=== PATIENT | male | born 1970 | race Caucasian/White ===

== ENCOUNTER 2019-07-23 06:36 | Observation (INO) | payer BC, OTHER, SELFPAY ==
[2019-07-23] VITALS (10 sets, daily range): BP systolic 113–167; BP diastolic 74–98; PULSE 74–94; RESP 14–22; TEMP 36.7–37; O2SAT 96–100; BMI 33.4
--- NOTE | ~2019-07-23 | CT_ITS ---
EXAMINATION: CTA chest PE protocol DATE: 07/23/2019 09:09 CDT INDICATION: Chest pain and shortness of breath TECHNIQUE: Computed tomographic angiography (CTA) of the chest was performed with 100 mL Omnipaque-35 0 intravenous contrast. The dose-length product was 474.21 mGy-cm. Maximum intensity projection 3D-re constructions of the aorta and other arteries were constructed by the technologist on a separate work station. Automated exposure control and iterative reconstruction technique were employed. COMPARISON: Chest dated 07/23/2019 FINDINGS: Study is technically adequate without evidence for pulmonary embolism. Streak artifact from the IVC limits evaluation of the left upper lobe pulmonary arteries centrally. No significant pleura l or pericardial effusion. Heart size normal. No evidence for mediastinal lymphadenopathy. No pneumot horax. No endobronchial lesions. No pulmonary nodules or masses. Status post cholecystectomy. The upp er abdomen is otherwise unremarkable. IMPRESSION: 1. No acute cardiopulmonary disease. No evidence for pulmonary embolism. Reviewed, dictated and finalized at location A.
--- NOTE | ~2019-07-23 | XR_ITS ---
EXAMINATION: XR chest 2V 07/23/2019 07:12 INDICATION: Chest pressure. PROCEDURE: 2 view chest COMPARISON: 01/31/2015 FINDINGS: The lungs are clear. The cardiomediastinal silhouette is within normal limits. There are no pleural effusions. There is no pneumothorax suspected. IMPRESSION: 1: NO ACUTE CARDIOPULMONARY DISEASE. Reviewed, dictated and finalized at location A.
--- NOTE | 2019-07-23 06:44 | ECG_ITS ---
Measurements Intervals [place] Rate: 96 P: 50 [place]: 171 QRS: -13 QRSD: 98 T: 33 QT: 335 QTc: 425 Interpretive Statements SINUS RHYTHM BORDERLINE R WAVE PROGRESSION, ANTERIOR LEADS INFERIOR INFARCT, AGE INDETERMINATE ABNORMAL ECG Electronically Signed On 07-23-2019 7:12:39 CDT by Maverick Carlson D.O.
--- NOTE | 2019-07-23 06:45 | ED.ABDPAIN ---
HPI - Abdominal Pain General Chief Complaint: Chest Pain Stated Complaint: chest pressure Time Seen by Provider: 07/23/19 06:38 Source: RN notes reviewed History of Present Illness HPI narrative: Patient presents emergency department from home for chest pain. Patient states symptoms been ongoing for the past 2 weeks. Patient is located in the middle lower chest and is described as aching. Pain does not radiate. Patient states that pain seems to be worse when he lays down to sleep and in the morning. He denies any previous history of cardiac disease. Denies any fevers or chills shortness of breath cough abdominal pain nausea vomiting diarrhea or any other symptoms. States he is taking nothing previously for the pain. Patient states the pain is always there but will come and go in intensity Related Data Home Medications Medication Instructions Recorded Confirmed sildenafil 07/23/19 valacyclovir 07/23/19 Allergies Allergy/AdvReac Type Severity Reaction Status Date / Time hydrocodone Allergy Mild rash Verified 07/23/19 06:51 Penicillins Allergy Mild rash Verified 07/23/19 06:51 Review of Systems Review of Systems: Narrative: Gen.: Denies fevers or chills ENT: Denies congestion Respiratory: Denies shortness of breath or cough CV: See HPI GI: Denies abdominal pain nausea, emesis or diarrhea denies burning, urgency, frequency or hematuria Musculoskeletal: Denies back pain or muscle pain Neuro: Denies numbness, tingling, weakness or focal weakness Skin: Denies rash Except as documented, all other systems reviewed and negative PMFSH Past Medical History Medical History (Updated 07/23/19 @ 10:15 by Abdi Angel DO) Patient denies significant medical history Social History Social History Smoking status: Never smoker Second hand tobacco smoke exposure: No Alcohol intake: never Exam Narrative: Exam Narrative: APPEARANCE: No acute distress, nontoxic, resting in bed EYES: EOMI HEENT: Normocephalic, atraumatic, OMM RESPIRATORY: No respiratory distress Clear to auscultation bilaterally with no rhonchi wheezing or rales. CARDIOVASCULAR: Regular rate and rhythm without murmurs rubs or gallops. ABDOMINAL: Soft, nontender, nondistended, no rebound or guarding MUSCULOSKELETAl: Moves all extremities. No clubbing, cyanosis or edema. NEURO: Awake and alert. Following commands, speech normal, no focal deficits SKIN:: Warm, dry. No rashes lesions or abrasions PSYCHIATRIC: Normal affect/mood, Course Course Emergency Course: Patient states pain is resolved at this time Discussed with OR[place]O Middleton for Dr. Mota presentation work-up. Agrees admission [facility] Discussed with patient and family results of workup and diagnosis. Discussed need for admission. Patient and family understand and agree to current treatment plan Vital Signs Vital signs: Vital Signs Temperature 98.6 F 07/23/19 06:37 Pulse Rate 93 07/23/19 06:37 Respiratory Rate 22 H 07/23/19 06:37 Blood Pressure 167/98 H 07/23/19 06:37 Pulse Oximetry 100 07/23/19 06:37 Temperature 98.6 F 07/23/19 06:37 Pulse Rate 93 07/23/19 06:37 Respiratory Rate 22 H 07/23/19 06:37 Blood Pressure 167/98 H 07/23/19 06:37 Pulse Oximetry 100 07/23/19 06:37 MDM - Abdominal Pain Lab Data Result diagrams: 07/23/19 06:49 07/23/19 06:48 Labs: Lab Results 07/23/19 07/23/19 07/23/19 Range/Units 06:48 06:48 06:49 WBC 6.3 (4.5-10.0) K/mm3 RBC 5.42 (4.6-6.20) M/mm3 Hgb 17.4 (14.0-18.0) g/dL Hct 49.3 (42.0-52.0) % MCV 91.0 (80-100) fl MCH 32.1 (26-34) pg MCHC 35.3 (32-36) g/dl RDW 11.9 (11.5-14.5) % Plt Count 220 (150-375) k/mm3 MPV 10.6 H (7.4-10.4) fl Immature Gran % (Auto) 0.3 (0-0.5) % Neut % (Auto) 44.9 L (45.5-73.1) % Lymph % (Auto) 33.3 (18.3-44.2) % [place] % (Au
[2019-07-23 06:58] LABS: Basophils Percent Auto 0.6 % (0.2-1.2); Eosinophils Absolute Auto 0.3 K/mm3 (0-0.3); Eosinophils Percent Auto 4.1 % (0-4.4); Hematocrit 49.3 % (42.0-52.0); Hemoglobin 17.4 g/dL (14.0-18.0); Immature Granulocyte Absolute 0.02 K/mm3 (0.00-0.031); Immature Granulocyte Percent A 0.3 % (0-0.5); Lymphocytes Percent Auto 33.3 % (18.3-44.2); Mean Corpuscular HGB Conc 35.3 g/dl (32-36); Mean Corpuscular Hemoglobin 32.1 pg (26-34); Mean Platelet Volume 10.6 fl (7.4-10.4); Monocytes Absolute Auto 1.1 K/mm3 (0.1-0.6); Monocytes Percent Auto 16.8 % (2.6-8.5); Neutrophils Absolute Auto 2.8 K/mm3 (1.3-6.7); Neutrophils Percent Auto 44.9 % (45.5-73.1); Platelet Count Result 220 k/mm3 (150-375); Red Blood Count 5.42 M/mm3 (4.6-6.20); Red Cell Distribution Width 11.9 % (11.5-14.5); White Blood Count 6.3 K/mm3 (4.5-10.0)
[2019-07-23 07:22] LABS: Troponin I < 0.012 ng/mL (0.000-0.034)
[2019-07-23 07:24] LABS: Alanine Aminotransferase 40 U/L (4-50); Albumin Level 4.5 g/dL (3.5-5.1); Alkaline Phosphatase 59 U/L (38-126); Aspartate Amino Transferase 36 U/L (17-59); Bilirubin,Total 0.6 mg/dL (0.2-1.3); Blood Urea Nitrogen 15 mg/dL (9-20); Calcium 8.9 mg/dL (8.4-10.2); Carbon Dioxide 28 mmol/L (22-30); Chloride 101 mmol/L (98-107); Estimated Glomerular Filt Rate > 60; Glucose 111 mg/dL (75-110); Lipase 78 U/L (23-300); Potassium 4.1 mmol/L (3.4-5.0); Sodium 138 mmol/L (137-145)
[2019-07-23 09:57] LABS: Cholesterol 161 mg/dL (0-200); HDL Direct 42 mg/dL; Triglycerides 199 mg/dL (<150)
[2019-07-23 10:07] LABS: LDL Cholesterol Direct 115 mg/dL
--- NOTE | 2019-07-23 10:24 | ADMGEN ---
This patient, Sumit Abdi, was admitted [facility] Patient/family oriented to hospital policies and general routines including ID bracelet, bed and alarms, visiting hours, pain management, procedures, bathroom and other care routines, personal items, smoking policy, room service/diet, and visiting hours. Valuables list has been completed. Information on how to activate the Rapid Response Team has been discussed. Patient/Family are encouraged to report perceived risks to care and to ask questions if they do not understand what they are told or what they should do.
[2019-07-23 10:32] LABS: Troponin I < 0.012 ng/mL (0.000-0.034)
--- NOTE | 2019-07-23 11:58 | PC.NURSE ---
DR. NAJERA TO BEDSIDE TO SEE PT.
--- NOTE | 2019-07-23 12:22 | PM.IMHP ---
H&P: HPI History of Present Illness Chief complaint: chest pain Narrative: Sumit Abdi is a 49 year old male without any previous history of cardiac problems to seen in the emergency room this morning at admitted to the [facility]. The patient reports a 2 to three-week history of chest discomfort he describes as a dull aching pain that is sometimes in the low substernal region sometimes in the upper substernal region sometimes to the left of center and sometimes over to the right. The symptoms seem to come and go throughout the course of the day they are not associated with any symptoms of shortness of breath diaphoresis nausea or vomiting. They seem to be less noticeable if he is active during the day and more noticeable if he is quiet sitting in a chair relaxing. He does go to the gym and exercise regularly for fitness and has not noticed that vigorous aerobic activity will cause any of this. He has no other cardiac history or symptomatology. The patient was seen in the emergency room for these symptoms this morning is evaluations done there was unrevealing in it was determined that he should come to the [facility]. He denies any history of hypertension diabetes or dyslipidemia he does have sleep apnea for which he has been on CPAP for for 5 years. He is a established patient of Dr. Real Gregorio. Review of Systems Constitutional: Constitutional: Reports no additional constitutional complaints Eyes: Eyes: Reports no additional eye complaints ENT: Reports system reviewed and no additional complaints, except as documented Cardiovascular: Cardiovascular: Reports as per HPI Respiratory: Respiratory: Reports no additional respiratory complaints Gastrointestinal: Gastrointestinal: Reports no additional gastrointestinal complaints Musculoskeletal: Musculoskeletal: Reports no additional musculoskeletal complaints Integumentary/Breasts: Skin/Breast: Reports system reviewed and no additional complaints, except as docu Neurologic: Reports system reviewed and no additional complaints, except as documented Psychiatric: Psychiatric: Reports no additional psychiatric complaints [facility] Past Medical History Medical History (Updated 07/23/19 @ 10:15 by Abdi Angel DO) Patient denies significant medical history Social History Social History Smoking status: Never smoker Second hand tobacco smoke exposure: No Alcohol intake: never Meds Home Medications and Allergies Home Medications Medication Instructions Recorded Confirmed Type No Home Medications 07/23/19 07/23/19 History Allergies Allergy/AdvReac Type Severity Reaction Status Date / Time hydrocodone Allergy Mild rash Verified 07/23/19 06:51 Penicillins Allergy Mild rash Verified 07/23/19 06:51 Vital Signs Vital Signs - 24 hr 07/23/19 06:37 07/23/19 07:30 07/23/19 08:30 Temperature 37.0 C Pulse Rate 93 79 74 Respiratory Rate 22 H 16 14 Blood Pressure 167/98 H 113/80 124/74 Pulse Oximetry 100 97 96 07/23/19 09:30 07/23/19 10:14 07/23/19 10:40 Temperature Pulse Rate 74 77 80 Respiratory Rate 14 14 Blood Pressure 128/80 118/82 Pulse Oximetry 96 99 Exam Const: General: comfortable and no acute distress Other: Healthy-appearing white male overweight otherwise comfortable cooperative in no distress of any kind HENMT: Mouth: Yes moist mucous membranes Eyes: Sclera: sclerae normal Pupils: Equal, round and reactive pupils present Neck: Neck: supple and no JVD Thyroid: thyroid normal Other: Carotid upstrokes are normal in character and are free of bruits. Resp: Effort & Inspection: normal respiratory effort Auscultation: clear to auscultation bilaterally Cardio: Rate: regular rate Rhythm: regular rhythm Other: No murmur no gallop no rub no extra sounds. PMI is of normal location and activity. GI: GI Palp: Yes Soft to palpation Auscultatio
--- NOTE | 2019-07-23 12:37 | ECG_ITS ---
Measurements Intervals [place] Rate: 76 P: 49 [place]: 192 QRS: -12 QRSD: 99 T: 15 QT: 355 QTc: 399 Interpretive Statements SINUS RHYTHM BORDERLINE R WAVE PROGRESSION, ANTERIOR LEADS INFERIOR INFARCT, AGE INDETERMINATE ABNORMAL ECG Electronically Signed On 07-23-2019 11:19:52 CDT by Maverick Carlson D.O.
[2019-07-23 13:38] LABS: Troponin I < 0.012 ng/mL (0.000-0.034)
--- NOTE | 2019-07-23 13:50 | PC.NURSE ---
RESULT OF 6 HOUR TROPONIN (NEGATIVE) CALLED TO KEREN BEE NP.
--- NOTE | 2019-07-23 15:12 | PC.NURSE ---
REVIEWED DISCHARGE INSTRUCTIONS WITH PT. ALL QUESTIONS ANSWERED. VOICED UNDERSTANDING OF ALL. COPY GIVEN. DISCHARGED HOME, OUT AMBULATORY W/ ALL PERSONAL BELONGINGS AND DISCHARGE INSTRUCTIONS TO OWN CAR. STEADY GAIT. VOICES NO C/O PAIN.
--- NOTE | 2019-07-23 15:37 | ECG_ITS ---
Measurements Intervals [place] Rate: 78 P: 55 [place]: 174 QRS: -12 QRSD: 106 T: 34 QT: 361 QTc: 412 Interpretive Statements SINUS RHYTHM BORDERLINE R WAVE PROGRESSION, ANTERIOR LEADS INFERIOR INFARCT, AGE INDETERMINATE ABNORMAL ECG Electronically Signed On 07-23-2019 13:07:31 CDT by Maverick Carlson D.O.
== END 2019-07-23 15:12 | disposition home or self-care (01) ==
LOC: ANHED 09:40 → ANHCPC 09:48
PROVIDERS: Admitting Provider Specialist; Emergency Provider Emergency Medicine; Visit Provider Specialist
DX: R07.89 Other chest pain (principal)
CPT/HCPCS: 36415; 71046; 71275; 80053; 80061; 83690; 84484; 85025; 93005; 99285; A9270; G0378; Q9967

== ENCOUNTER → 2020-06-23 01:10 | Outpatient (CLI) | payer BC, OTHER, SELFPAY ==
[2020-06-23 18:28] LABS: SARS-CoV-2 RNA PCR Negative
== END ==
PROVIDERS: PCP Physician Assistant; Visit Provider Surgery
DX: Z01.812 Encounter for preprocedural laboratory examination (principal); Z20.822 Contact with and (suspected) exposure to COVID-19
CPT/HCPCS: C9803; U0003; U0005

== ENCOUNTER 2020-06-26 00:03 | Day surgery (SDC) | payer BC, OTHER, SELFPAY ==
[2020-06-24 09:50] VITALS: BMI 32.5
--- NOTE | 2020-06-24 12:07 | PM.SD2 ---
Same Day Admit/Disch: HPI History of Present Illness Chief complaint: Umbilical Hernia, Skin Tag Pubic Narrative: Sumit Abdi is a 50 year old male who noticed a bulge in the umbilical area. He was seen in the office in April and found to have an umbilical hernia. He also has a large skin tag in the pubic area. Both are bothersome for him. He is taken to surgery now as an outpatient for repair of the umbilical hernia as well as removal of the skin tag. 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 Gender identity (if verbalized by the patient): Male Spiritual care concerns: No Same Day Admit/Disch: Med Pre-admit Medications Home Medications Medication Instructions Recorded Confirmed Type ketorolac 10 mg PO Q6H 4 Days #16 tablet 06/26/20 Rx tramadol 50 mg PO Q6H PRN #10 tablet 06/26/20 Rx Exam Const: General: comfortable, no acute distress, alert and awake HENMT: Head: normocephalic and atraumatic Mouth: Yes Normal oral and palatal mucosa present Eyes: Conjunctivae: conjunctivae normal Pupils: Equal, round and reactive pupils present EOM: EOMs intact bilaterally Neck: Neck: normal visual inspection, no lymphadenopathy and nontender Resp: Effort & Inspection: normal respiratory effort Auscultation: clear to auscultation bilaterally Cardio: Rate: regular rate Rhythm: regular rhythm Heart sounds: no gallops, no murmurs and no rubs GI: Inspection: non-distended and visible herniation ( umbilical) GI Palp: Yes Soft to palpation, Yes Tenderness to palpation present (GI) ( mild tenderness), No Hepatomegaly present, No Splenomegaly present and Yes Hernia present ( small umbilical bulge just to the right of the umbilicus, slightly tender) Auscultation: normal bowel sounds Skin: Lesions: lesion noted (2 large skin tags left side of pubic area) Rashes: no rashes Neuro: General: no focal motor deficits and CN's II-XI intact bilaterally Cranial nerves: Yes Equal, round and reactive pupils present, Yes Bilaterally intact EOM present, Yes facial symmetry and Yes Midline tongue present Speech: normal speech Motor exam (neuro): 5/5 motor strength present throughout and Motor abnormalities not present Extrem: General: no clubbing, cyanosis or edema and edema Psych: Affect: normal affect Thought process: Normal thought process present Insight: Good insight present (Psych) DS: Summary Time Spent with Patient Time attestation: Total time spent providing and/or coordinating discharge services: DS: Admitting Diagnosis Admitting Diagnosis Admitting Diagnosis: symptomatic reducible umbilical hernia - plan to repair as an outpatient under local anesthesia with IV sedation. I discussed the procedure the risks the benefits with the patient. I discussed that mesh may possibly be used. The usual recovery and time off work were discussed. All questions were answered. He understands and agrees to go ahead. Left-sided pubic skin tags -symptomatic. Will proceed with removal at the same time as umbilical hernia repair. This was discussed as well. DS: Discharge Diagnosis Discharge Diagnosis (1) Umbilical hernia: Qualifiers: Obstru
[2020-06-26 09:15] VITALS: BP 124/82; PULSE 94; RESP 20; TEMP 36.6; O2SAT 97
--- NOTE | 2020-06-26 09:21 | P.PNAN_ITS ---
Anes - Initial Pre Proc Eval Procedure: Operation Date: 06/26/20 10:30 Proposed Procedures p Umbilical Hernia Repair, Possibly With Mesh - William López MD s Removal Of Pubic Skin Tag - William López MD Date/Time: 06/26/20 09:21 Surgeon: William López MD Pre Op Diagnosis: Umbilical Hernia, Skin Tag Pubic Patient Data Age: 50 Gender: M Height: 5 ft 9 in Weight: 101.5 kg Last Vital Signs Temp 36.6 C 06/26/20 09:15 Pulse 94 06/26/20 09:15 Resp 20 06/26/20 09:15 BP 124/82 06/26/20 09:15 Pulse Ox 97 06/26/20 09:15 Allergies Allergy/AdvReac Type Severity Reaction Status Date / Time hydrocodone Allergy Mild rash Verified 06/24/20 09:49 Penicillins Allergy Mild rash Verified 06/24/20 09:49 Home Medications Medication Instructions Recorded Confirmed Type No Home Medications 07/23/19 06/24/20 History Patient hx anesthesia problems: none Family hx anesthesia problems: none [facility] Past Medical History Medical History (Updated 06/26/20 @ 09:33 by Jin Long MD) AMBERLY (obstructive sleep apnea) Surgical History Surgical History History of cholecystectomy Family History Family History Father Family history of transient ischemic attacks Family history of cardiovascular disease Mother Family history of Alzheimer's disease Hypothyroid Other Family history of allergic disorder Social History Social History Smoking status: Never smoker Second hand tobacco smoke exposure: No Alcohol intake: never Living arrangements: with roommate(s) Additional occupation/education comments: [employer] Gender identity (if verbalized by the patient): Male Spiritual care concerns: No Anes - Eval Final PreProcedure Day of Procedure 06/26/20 09:21 Patient weight: obese Heart: regular rate and rhythm Lungs: clear to auscultation Airway: Mallampati scale class II Neurological: alert and oriented Last oral intake: >/= 8 hours ASA classification: II Emergent: no Anesthetic plan: proceed Anesthesia type and monitoring: general GIVS and standard monitoring Informed Consent: The patient's anesthetic plan and its attendant risks and benefits were discussed with the patient/family/POA. Questions were solicited and answers provided to the satisfaction of the patient/family/POA.
[2020-06-26] MEDS: ACETAMINOPHEN 500 MG TABLET 1000 MG PO (09:36)
[2020-06-26] MEDS: KETOROLAC 15 MG/ML VIAL (*BKC) IV PUSH (09:39)
[2020-06-26] MEDS: LACTATED RINGERS 1,000 ML 30 ML IV CONT (09:39)
--- NOTE | 2020-06-26 09:56 | WPDHPUPDATE1 ---
History and Physical Update Update Date/Time: 06/26/20 09:56 History and Physical has been reviewed, including an updated exam of the patient. There are NO changes in the patient's condition. Risks, benefits, and alternatives have been discussed and questions answered. Patient agrees to proceed with procedure.
[2020-06-26] MEDS: ceFAZolin 2 GM/D5W 50 ML 2 GM/50 ML BAG IVPB (10:12)
[2020-06-26 11:28] VITALS: BP 111/60; PULSE 85; RESP 16; O2SAT 93
--- NOTE | 2020-06-26 11:39 | PM.PROC ---
Procedure Note - Detailed Date of procedure: 06/26/20 Pre-op diagnosis: Umbilical Hernia, Skin Tags Pubic Umbilical hernia, to pubic skin tags Post-op diagnosis: same Procedure performed: Umbilical hernia repair with 4.6 cm Parietex mesh, removal 2 pubic skin tags Description of procedure: Patient was taken to the operating room and IV sedation was administered. Prep and drape was carried out. We 1st turned our attention to the 2 pubic skin tags on the left side of the pubic area. Local anesthesia was infiltrated into the base of each of these skin tags. Each tag was then excised at its base leaving a small partial skin defect. Cautery was used to achieve hemostasis of both of the small skin defects. The skin tags were discarded. We then turned our attention to the umbilicus. The proposed incision along the upper margin of the umbilicus was marked on the skin. Local anesthetic was infiltrated into the skin and the deeper subcutaneous tissues. Incision was made and dissection was carried down through the skin and to the hernia sac. The sac was then dissected free from the umbilical skin and the surrounding subcutaneous tissues. It was dissected down to its neck. Additional local anesthetic was infiltrated into the neck and the fascia surrounding the neck of the hernia sac. The sac was then amputated at its neck. The subcutaneous was undermined around the hernia defect. Additional local was infiltrated around the fascia. I placed a finger inside the hernia defect and checked for any abdominal wall adhesions in the area. None were found. No other hernias were noted. A 4.6 cm Parietex [place] was chosen. It was folded and placed in the defect. Once it symmetrically covered the defect, I placed cranial and caudal transfascial sutures of 0 Ethibond. These sutures were placed in such a fashion that, when tied, they would advance the edges of the hernia defect towards 1 another. These sutures were tied and had the desired effect. I then closed the hernia defect with [id number] mattress sutures of 0 Ethibond. The repair looked quite satisfactory. I then infiltrated additional local all around the areas of the repair. The umbilical skin was tacked to the fascia with 3 0 Vicryl suture. The subcutaneous was closed with 3 0 Vicryl. Subcuticular interrupted 4 O Vicryl skin stitches were placed. The skin was then closed with running 4 0 Monocryl subcuticular suture. Wound was dressed with Exofin surgical adhesive. A Band-Aid was placed over the area where the skin tags had been removed. The patient was awakened and taken to recovery in good condition. Counts were correct x2. Implants: 4.6 cm Parietex hernia mesh Anesthesia: MAC and local (0.5% Marcaine with Exparel) Surgeon: William López MD Radio Frequency Technician: Vannesa GORDON, EVAN Friedman Estimated blood loss (mL): 5 Drains: No Packing: No Pathology: none sent Complications: None Condition: stable Disposition: same day Findings: Eight millimeter hernia defect
[2020-06-26 11:50] VITALS: BP 110/74; PULSE 78; RESP 20
--- NOTE | 2020-06-26 12:09 | SUR.PHASEII ---
1209 - Dr. López in room talking with pt
[2020-06-26 12:15] VITALS: BP 106/76; PULSE 78; RESP 20
[2020-06-26 12:40] VITALS: BP 108/70; PULSE 75; RESP 20
== END 2020-06-26 12:58 | disposition home or self-care (01) ==
PROVIDERS: PCP Physician Assistant; Visit Provider Surgery
PROC: (CPT 49585; principal; 2020-06-26 10:30)
PROC: (CPT 49585; 2020-06-26 10:30)
DX: K42.9 Umbilical hernia without obstruction or gangrene (principal); L91.8 Other hypertrophic disorders of the skin; G47.33 Obstructive sleep apnea (adult) (pediatric); E66.9 Obesity, unspecified; Z68.33 Body mass index [BMI] 33.0-33.9, adult
CPT/HCPCS: 49585; 11200; A9270; C1781; C9290; J0690; J1885; J2250; J2704; J3010; J7120

== ENCOUNTER 2021-01-30 16:00 | Outpatient (CLI) | payer BC, OTHER, SELFPAY ==
--- NOTE | ~2021-01-30 | US_ITS ---
US scrotum doppler DATE: 01/30/2021 16:33 INDICATION: Epididymal cyst TECHNIQUE: Real-time and color flow imaging and Doppler analysis of the scrotal contents COMPARISON: 05/20/2017 scrotal ultrasound FINDINGS: The testicles measure 3.9 x 3.7 x 2.3 cm on the right and 3.8 x 2.7 x 2.1 cm on the left. T here is symmetric homogeneous echotexture of the testicles. No testicular mass lesion or torsion is d etected. Right epididymal cyst measures 3.5 x 2 x 4.1 cm, with through transmission posterior enhancement. No varicocele or hydrocele is noted. IMPRESSION: 3.5 x 2 x 4.1 cm right epididymal cyst, previously measuring 2.3 x 1.6 x 3.3 cm on 05/20/19 18 Reviewed, dictated and finalized at Location A. Reviewed, dictated and finalized at location A. IMPRESSION: 3.5 x 2 x 4.1 cm right epididymal cyst, previously measuring 2.3 x 1.6 x 3.3 cm on 05/20/2017
== END 2021-01-30 16:01 | disposition home or self-care (01) ==
PROVIDERS: PCP Physician Assistant; Visit Provider Urology
DX: N50.3 Cyst of epididymis (principal)
CPT/HCPCS: 76870; 93976

== ENCOUNTER 2023-07-12 02:18 | Day surgery (SDC) | payer BC, OTHER, SELFPAY ==
[2023-07-09 13:49] VITALS: BMI 32.5
--- NOTE | 2023-07-09 14:00 | PC.NURSE ---
Report to the Outpatient Waiting Room, entrance under the green pavilion located off [facility], at 0630 on 07/12/23. Planned Procedure Time: 0830. Time changes happen often and if your time is changed the preop area will call you the afternoon before. - You and your visitor will be asked to self-screen and do not enter if you have any COVID symptoms. - A mask is optional within the hospital at this time. Patients may have clear liquids (water, carbonated beverages, clear teas, apple juice) until 3 hours prior to surgery with a maximum of 20 ounces. - No food from midnight until time of surgery Take the following medications with a SIP of water the morning of surgery: n/a DO NOT STOP ANY OF YOUR OTHER PRESCRIPTION MEDICATIONS PRIOR TO SURGERY ?EXCEPT THE FOLLOWING Medications to discontinue per physician n/a Date to take last dose n/a Please no make-up, nail ivorian, hairspray, perfume, deodorant, or body powder the day of surgery. No jewelry (including any body piercings) or valuables the day of surgery, leave them at home. Please take a shower or bath the night before, or the morning of, surgery with an antibacterial soap. Wear comfortable, loose fitting clothing. - Jewelry must be removed prior to entering the operating room. Rings and piercings that are not removed may be cut off. - The hospital will not accept responsibility for valuables. - Please leave all valuables, including medications, at home the day of surgery. If you are going home after surgery, a licensed [facility] driver must drive you home. - NO public transportation without another adult if you receive anesthesia. - We recommend that an adult stay with you for 24 hours following discharge. - We also recommend that you do not drive, make important decision, drink alcoholic beverages, or take any drugs that were not prescribed by your health care provider for at least 24 hours after your discharge time. Follow any additional instructions given to you from your surgeon. If you or anyone in your household have experienced Covid symptoms in the past week, please notify your surgeon or the nurse liaison at the phone number below for possible testing. Telephone instructions given to patient and asked if any additional questions and then verbalized understanding. Patient advised to call surgeon office or pre surgery nurse liaison [phone] if any additional questions.
[2023-07-12] VITALS (9 sets, daily range): BP systolic 111–125; BP diastolic 67–91; PULSE 67–84; RESP 10–20; TEMP 36.2–36.8; O2SAT 95–98
[2023-07-12] MEDS: LACTATED RINGERS 1,000 ML 30 ML IV CONT (06:45)
--- NOTE | 2023-07-12 07:11 | P.PNAN_ITS ---
Anes - Initial Pre Proc Eval Procedure: Operation Date: 07/12/23 07:30 Proposed Procedures p Excision Right Epididymal Cyst, Orchiopexy - Carlos Eduardo Jett MD Date/Time: 07/12/23 07:11 Surgeon: Carlos Eduardo Jett MD Pre Op Diagnosis: epididymal cyst Patient Data Age: 53 Gender: M Height: 1.75 m Weight: 101 kg Allergies Allergy/AdvReac Type Severity Reaction Status Date / Time hydrocodone Allergy Mild rash Verified 07/12/23 06:06 Penicillins Allergy Mild rash Verified 07/12/23 06:06 Home Medications Medication Instructions Recorded Confirmed Type No Home Medications 07/09/23 07/12/23 History Patient hx anesthesia problems: none Family hx anesthesia problems: none Results Review: All pre-operative results and documents have been reviewed as part of the pre- operative evaluation. [facility] Past Medical History Medical History AMBERLY (obstructive sleep apnea) Surgical History Surgical History H/O umbilical hernia repair 06/26/20 Umbilical hernia repair with 4.6 cm Parietex mesh, removal 2 pubic skin tags History of cholecystectomy Family History Family History Father Family history of transient ischemic attacks Family history of cardiovascular disease Mother Family history of Alzheimer's disease Hypothyroid Other Family history of allergic disorder Social History Social History Smoking status: Current some day smoker Tobacco type: cigarettes Second hand tobacco smoke exposure: No Additional smoking assessment comments: 1-2 cigarettes/month Alcohol intake: never Substance use: never Substance use type: does not use Do You Feel Safe in your Home?: Yes Lack of Transportation: No Lack of Food: Never True Current Housing: I Have Housing Concerned About Future Housing: No Difficulty Paying Gas/Electric Bills: No Difficulty Paying for Meds: No Currently Unemployed: No Education: Bachelor's Degree Difficulty w/ Childcare or Family Care: No Living arrangements: with family Occupation/Education: occupation Additional occupation/education comments: [employer] Gender identity (if verbalized by the patient): Male Spiritual care concerns: No Anes - Eval Final PreProcedure Day of Procedure 07/12/23 07:11 Patient weight: obese Heart: regular rate and rhythm Lungs: clear to auscultation Airway: Mallampati scale class II Neurological: alert and oriented Last oral intake: >/= 8 hours ASA classification: III Emergent: no Anesthetic plan: proceed Anesthesia type and monitoring: general LMA and standard monitoring Results Review: All pre-operative results and documents have been reviewed as part of the pre- operative evaluation. Informed Consent: The patient's anesthetic plan and its attendant risks and benefits were discussed with the patient/family/POA. Questions were solicited and answers provided to the satisfaction of the patient/family/POA.
--- NOTE | 2023-07-12 07:13 | WPDHPUPDATE1 ---
History and Physical Update Update Date/Time: 07/12/23 07:13 History and Physical has been reviewed, including an updated exam of the patient. There are NO changes in the patient's condition. Risks, benefits, and alternatives have been discussed and questions answered. Patient agrees to proceed with procedure.
[2023-07-12] MEDS: ceFAZolin 2 GM/D5W 50 ML 2 GM/50 ML BAG IVPB (07:37)
[2023-07-12] MEDS: LIDOCAINE HCL 1% LOCAL INJ 20 ML VIAL 10 ML INFILTRATE (07:50)
--- NOTE | 2023-07-12 08:32 | P.OP_ITS ---
Procedure Note - Detailed Date of Procedure 07/12/23 Pre-op Diagnosis epididymal cyst Post-op Diagnosis Other (Right epididymal cyst, right hydrocele) Procedure Performed Right hydrocelectomy, excision of right epididymal cyst, right orchiopexy Surgeon Carlos Eduardo Jett MD Anesthesia General Description of Procedure Patient is taken to the operative suite correctly identified. Once anesthesia was obtained he was placed in supine position and prepped and draped usual sterile fashion. A right transverse hemiscrotal incision was made. This was carried through the tunical layers. The right testicle with the hydrocele was brought into the operative field. Hydrocele sac was opened and drained of appro ximately 25 cc of straw-colored fluid. The excess tissue was then excised and the edges fulgurated. He has about a 2 cm epididymal cyst which was tracked down to its origin at the head of the epididymis. This was then transected and ligated using 3-0 chromic. Cord Rashad drain was then placed through a separate stab incision. This was secured using 3-0 chromic. An orchiopexy was performed using 3-0 Ethibond in a three-point fixture. Tunica layer was closed using 3-0 chromic in a running fashion. Skin was closed using a 3-0 chromic in a running fashion. Skin was anesthetized using 1% lidocaine. Patient tolerated procedure well without any complications and was taken recovery stable condition. Patient will be discharged home and have the drain removed in 2-3 days. He will follow-up in 2-3 weeks time. This completes dictation. Please send a copy of op note to my office. Estimated Blood Loss 10 Drains Yes Packing No Pathology Yes Complications No immediate complications Condition Stable Disposition PACU
[2023-07-12] MEDS: traMADol HCL (*CRX) 50 MG TABLET 100 MG PO (09:47)
[2023-07-12] MEDS: ONDANSETRON HCL ODT 4 MG TABLET PO (10:38)
== END 2023-07-12 10:41 | disposition home or self-care (01) ==
PROVIDERS: PCP Physician Assistant; Visit Provider Urology
PROC: (CPT 55040; principal; 2023-07-12 07:30)
DX: N50.3 Cyst of epididymis (principal); N43.3 Hydrocele, unspecified
CPT/HCPCS: 55040; 54830; 54640; 88302; 88305; A9270; J0690; J1100; J2250; J2405; J2704; J3010; J7120